=== PATIENT | female | born 1960 | race Caucasian/White ===

== ENCOUNTER 2017-01-14 07:03 | Outpatient (CLI) | payer OTHER ==
[2017-01-14 07:47] LABS: #Basophils 0.2 thou/uL (0.0-0.2); #Eosinphils 0.2 thou/uL (0.0-0.7); #Lymphocytes 2.3 thou/uL (1.20-3.40); #Monocytes 0.7 thou/uL (0.11-0.59); #Neutrophils 5.2 thou/uL (1.40-6.50); %Basophils 2.2 % (0.0-1.0); %Eosinophils 1.9 % (0.0-10.0); %Lymphocytes 27.1 % (21.0-51.0); %Neutrophils 60.9 % (42.0-75.0); Mean Corpuscular HGB CONC 31.7 g/dL (32.0-36.0); Mean Corpuscular Hemoglobin 29.9 pg (27.0-31.0); Mean Corpuscular Volume 94.2 fl (81.0-99.0); Mean Platelet Volume 7.2 fL (7.4-10.4); Platelet Count 302 thou/uL (130-400); RBC Distribution Width 12.6 % (11.5-14.5); Red Blood Cell (RBC) Count 5.36 mill/uL (4.20-5.40); White Blood Cell (WBC) Count 8.5 thou/uL (4.8-10.8)
[2017-01-14 07:53] LABS: ALT (SGPT) 18 U/L (0-55); AST (SGOT) 10 U/L (5-34); Albumin 3.8 g/dL (3.5-5.0); Alkaline Phosphatase 115 U/L (40-150); Anion Gap 11 mmol/L (10-20); BUN (Urea Nitrogen) 20 mg/dL (9.8-20.1); Bilirubin, Total 0.4 mg/dL (0.2-1.2); Calc. Creatinine Clearance 0 mL/min (70-130); Calcium 9.2 mg/dL (7.8-10.44); Carbon Dioxide 29 mmol/L (22-29); Cardiac Risk 6.9 (Less than 4.5); Chloride 104 mmol/L (98-107); Cholesterol 228 mg/dL (< 200 Desired); Estimated GFR-MDRD Greater than 90; Glucose 118 mg/dL (70-105); HDL Cholesterol 33 mg/dL (>60 Neg Risk); LDL Cholesterol, Calculated 157 mg/dL; Potassium 4.1 mmol/L (3.5-5.1); Protein, Total 6.8 g/dL (6.0-8.3); Sodium 140 mmol/L (136-145); Triglycerides 190 mg/dL (Less than 150)
[2017-01-14 08:04] LABS: Hemoglobin A1c 5.8 % (4.0-6.0)
[2017-01-14 08:21] LABS: Thyroid Stimulating Hormone 1.4717 uIU/mL (0.35-4.94); Vitamin D, 25 Hydroxy 19.9 ng/mL (> 30.0)
== END 2017-01-14 07:04 ==
LOC: MADLABBHPM 07:03 → EDSTATUS 07:07
PROVIDERS: ATTEND Family Medicine
DX: F41.8 Other specified anxiety disorders (principal); I10 Essential (primary) hypertension
CPT/HCPCS: 36415; 80053; 80061; 82306; 83036; 84443; 85025

== ENCOUNTER 2018-05-17 11:14 | Outpatient (CLI) | payer OTHER | END 2018-05-17 11:15 | disposition home or self-care (01) | LOC: MADLAB 11:14 | PROVIDERS: ATTEND Family Medicine | DX: Z01.411 Encounter for gynecological examination (general) (routine) with abnormal findings (principal) | CPT/HCPCS: 87624; 88142; G0123 ==